=== PATIENT | female | born 1960 | race Hispanic/Latino ===

== ENCOUNTER 2017-11-10 14:33 | Inpatient (IN) | payer MEDICARE, OTHER ==
[~2017-11-10] VITALS: Ht 157.5 cm; Wt 50.1 kg
[2017-11-10] MEDS ORDERED: KETOROLAC TROMETHAMINE 30MG/ML ONE (15:22)
[2017-11-10 15:44] LABS: BASOPHILS % (AUTO) 0.6 % (0.0-5.0); EOSINOPHILS % (AUTO) 0.8 % (0.0-8.0); HEMATOCRIT 40.9 % (36-48); LYMPHOCYTES % (AUTO) 24.9 % (21.0-51.0); MEAN CORPUSCULAR HEMOGLOBIN 30.6 pg (27.0-33.0); MEAN CORPUSCULAR HGB CONC 33.3 g/dL (32.0-36.0); MONOCYTES % (AUTO) 8.7 % (3.0-13.0); PLATELET COUNT (AUTO) 216 K/uL (130-400); RED BLOOD CELL COUNT(AUTO) 4.45 MIL/uL (4.00-5.50); RED CELL DISTRIBUTION WIDTH 13.5 % (11.0-15.5); WHITE BLOOD COUNT (AUTO) 6.5 K/uL (4.8-10.8)
[2017-11-10 15:57] LABS: INR 0.92 (0.85-1.15); PARTIAL THROMBOPLASTIN TIME 22.9 SEC (26.3-35.5); PROTHROMBIN TIME 9.7 SEC (9.6-11.6)
[2017-11-10 16:00] LABS: CREATININE 0.7 mg/dL (0.5-1.5); POTASSIUM 3.4 mmol/L (3.5-5.1)
[2017-11-10] MEDS ORDERED: MORPHINE SULFATE 2 MG/ML 1ML SYG IV PRN (17:30)
[2017-11-10] MEDS: SODIUM CHLORIDE 0.9% 1000ML 1,000 ML IV SCH (17:30)
[2017-11-10] MEDS ORDERED: POTASSIUM CHLORIDE 10MEQ/100ML 100 ML IV PRN (18:00)
[2017-11-10] MEDS ORDERED: POTASSIUM CHLORIDE 10% ELIXIR 20 MEQ/15 ML UDCUP PO PRN (18:00)
[2017-11-10] MEDS ORDERED: LIDOCAINE HCL-MPF 1% 2ML VIAL IVP PRN (18:00)
[2017-11-10] MEDS ORDERED: POTASSIUM CHLORIDE 20 MEQ ERTAB PO PRN (18:00)
[2017-11-10] MEDS ORDERED: SODIUM CHLORIDE 0.9% 1000ML 1,000 ML IV ONE (18:06)
[2017-11-10] MEDS ORDERED: MORPHINE SULFATE 2 MG/ML 1ML SYG ONE (18:07)
[2017-11-10 19:30] VITALS: BP 128/84
[2017-11-10] MEDS ORDERED: ENOXAPARIN SODIUM 30 MG/0.3 ML SQ ONE (19:45)
[2017-11-10] MEDS ORDERED: MORPHINE SULFATE 10 MG/ML 1ML VIAL IM PRN (21:00)
[2017-11-10] MEDS ORDERED: PROMETHAZINE HCL 25 MG/ML 1ML AMPULE IM PRN (21:00)
[2017-11-10] MEDS: FAMOTIDINE/PF 20 MG/2 ML VIAL IV SCH (21:19)
[2017-11-10] MEDS: CEFEPIME HCL 2 GM VIAL IVP SCH (21:19)
[2017-11-10] MEDS: DEXTROSE 5%-LACTATED RINGERS 1,000 ML IV SCH (23:50)
[2017-11-10] MEDS: KETOROLAC TROMETHAMINE 15MG/ML IM PRN (23:50)
[2017-11-11] VITALS (23 sets, daily range): BP systolic 100–131; BP diastolic 56–80
[2017-11-11] MEDS: SODIUM CHLORIDE 0.9% 1000ML 1,000 ML IV SCH ×2 (02:30→13:30)
[2017-11-11 04:01] LABS: BASOPHILS % (AUTO) 0.8 % (0.0-5.0); EOSINOPHILS % (AUTO) 2.1 % (0.0-8.0); HEMATOCRIT 36.6 % (36-48); LYMPHOCYTES % (AUTO) 27.1 % (21.0-51.0); MEAN CORPUSCULAR HEMOGLOBIN 31.1 pg (27.0-33.0); MEAN CORPUSCULAR HGB CONC 33.7 g/dL (32.0-36.0); MEAN CORPUSCULAR VOLUME 92.2 fL (79-99); MONOCYTES % (AUTO) 10.4 % (3.0-13.0); NEUTROPHILS % (AUTO) 59.6 % (40.0-77.0); PLATELET COUNT (AUTO) 209 K/uL (130-400); RED BLOOD CELL COUNT(AUTO) 3.97 MIL/uL (4.00-5.50); RED CELL DISTRIBUTION WIDTH 13.2 % (11.0-15.5); WHITE BLOOD COUNT (AUTO) 5.2 K/uL (4.8-10.8)
[2017-11-11 04:12] LABS: INR 0.94 (0.85-1.15); PARTIAL THROMBOPLASTIN TIME 23.8 SEC (26.3-35.5); PROTHROMBIN TIME 9.9 SEC (9.6-11.6)
[2017-11-11 04:15] LABS: ALBUMIN 2.7 g/dL (3.5-5.0); BILIRUBIN,TOTAL 0.6 mg/dL (0.2-1.0); CREATININE 0.7 mg/dL (0.5-1.5); POTASSIUM 3.9 mmol/L (3.5-5.1); TOTAL PROTEIN, SERUM 6.2 g/dL (6.0-8.3)
[2017-11-11] MEDS: CEFEPIME HCL 2 GM VIAL IVP SCH (08:00)
[2017-11-11] MEDS: CEFAZOLIN SODIUM 1 GM VIAL IVP ONE ×2 (08:00→10:55)
[2017-11-11] MEDS ORDERED: CEFEPIME HCL 1 GM VIAL ONE (08:15)
[2017-11-11] MEDS ORDERED: FENTANYL CITRATE PF 50 MCG/1 ML 2ML VIAL ONE (08:36)
[2017-11-11] MEDS ORDERED: PROPOFOL 10 MG/ML 20ML VIAL IV ONE (08:36)
[2017-11-11] MEDS ORDERED: METHYLPREDNISOLONE SOD SUCC 125MG/2ML VIAL ONE (08:36)
[2017-11-11] MEDS ORDERED: LIDOCAINE PF 2% 5ML ABBOJECT ONE (08:36)
[2017-11-11] MEDS ORDERED: ONDANSETRON HCL 4 MG/2 ML VIAL ONE (08:36)
[2017-11-11] MEDS ORDERED: ROPIVACAINE 0.5% 5MG/ML 30ML IJ ONE (08:37)
[2017-11-11] MEDS: FAMOTIDINE/PF 20 MG/2 ML VIAL IV SCH ×2 (09:38→19:35)
[2017-11-11] MEDS: KETOROLAC TROMETHAMINE 15MG/ML IM PRN ×3 (09:39→19:36)
[2017-11-11] MEDS ORDERED: LACTATED RINGERS 1000ML 1,000 ML IV ONE (10:11)
[2017-11-11] MEDS ORDERED: CEFAZOLIN SODIUM 1 GM VIAL ONE (10:23)
[2017-11-11] MEDS ORDERED: HYDROMORPHONE 1 MG/1 ML AMP ONE (10:31)
[2017-11-11] MEDS ORDERED: EPHEDRINE SULFATE 50 MG/ML AMPULE ONE (10:56)
[2017-11-11] MEDS ORDERED: GENTAMICIN 80 MG/NS 100 ML PB 100 ML IV PRN (11:00)
[2017-11-11] MEDS: DEXTROSE 5%-LACTATED RINGERS 1,000 ML IV SCH ×2 (11:46→23:32)
[2017-11-11] MEDS ORDERED: MEPERIDINE-PF 25 MG/ML SYG ONE (12:54)
[2017-11-11] MEDS ORDERED: GENTAMICIN 80 MG/NS 100 ML PB 100 ML IV SCH (14:00)
[2017-11-11] MEDS ORDERED: MORPHINE SULFATE 10 MG/ML 1ML SYG IM PRN (14:00)
[2017-11-11] MEDS ORDERED: MAGNESIUM HYDROXIDE 30 ML/UDCUP PO PRN (14:00)
[2017-11-11] MEDS ORDERED: PROMETHAZINE HCL 25 MG/ML 1ML AMPULE IM PRN (14:00)
[2017-11-11] MEDS ORDERED: BISACODYL 10 MG SUPP.RECT RC PRN (14:00)
[2017-11-11] MEDS ORDERED: LACTATED RINGERS 1000ML 1,000 ML IV SCH (14:00)
[2017-11-11] MEDS ORDERED: MORPHINE SULFATE 10 MG/ML 1ML VIAL IM PRN (14:15)
[2017-11-11] MEDS: CEFAZOLIN SODIUM 1 GM VIAL IVP SCH ×2 (14:29→21:03)
[2017-11-11] MEDS: GENTAMICIN 80 MG/NS 100 ML PB 100 ML IV SCH (18:46)
[2017-11-11 21:02] LABS: HEMATOCRIT 36.4 % (36-48)
[2017-11-11] MEDS ORDERED: MORPHINE SULFATE 8 MG/ML VIAL ONE (21:22)
[2017-11-11] MEDS ORDERED: MORPHINE SULFATE 5 MG/ML VIAL IM PRN (21:23)
[2017-11-12] VITALS (7 sets, daily range): BP systolic 92–152; BP diastolic 57–81
[2017-11-12 00:22] LABS: HEMATOCRIT 35.3 % (36-48)
[2017-11-12] MEDS: GENTAMICIN 80 MG/NS 100 ML PB 100 ML IV SCH ×2 (01:49→09:13)
[2017-11-12] MEDS: CEFAZOLIN SODIUM 1 GM VIAL IVP SCH (06:05)
[2017-11-12 06:06] LABS: HEMATOCRIT 33.9 % (36-48)
[2017-11-12] MEDS: FAMOTIDINE/PF 20 MG/2 ML VIAL IV SCH ×2 (08:42→21:16)
[2017-11-12] MEDS: ENOXAPARIN SODIUM 30 MG/0.3 ML SQ SCH (08:43)
[2017-11-12] MEDS: KETOROLAC TROMETHAMINE 15MG/ML IM PRN (21:16)
[2017-11-13 03:20] VITALS: BP 125/72
[2017-11-13 04:53] LABS: BASOPHILS % (AUTO) 0.3 % (0.0-5.0); EOSINOPHILS % (AUTO) 0.4 % (0.0-8.0); LYMPHOCYTES % (AUTO) 28.1 % (21.0-51.0); MEAN CORPUSCULAR HEMOGLOBIN 31.7 pg (27.0-33.0); MEAN CORPUSCULAR HGB CONC 34.3 g/dL (32.0-36.0); MEAN CORPUSCULAR VOLUME 92.3 fL (79-99); NEUTROPHILS % (AUTO) 61.2 % (40.0-77.0); PLATELET COUNT (AUTO) 202 K/uL (130-400); RED BLOOD CELL COUNT(AUTO) 4.01 MIL/uL (4.00-5.50); RED CELL DISTRIBUTION WIDTH 13.4 % (11.0-15.5); WHITE BLOOD COUNT (AUTO) 7.6 K/uL (4.8-10.8)
[2017-11-13 05:00] LABS: CREATININE 0.7 mg/dL (0.5-1.5); POTASSIUM 3.7 mmol/L (3.5-5.1)
[2017-11-13 07:58] VITALS: BP 122/76
[2017-11-13] MEDS: FAMOTIDINE/PF 20 MG/2 ML VIAL IV SCH (09:35)
[2017-11-13] MEDS: ENOXAPARIN SODIUM 30 MG/0.3 ML SQ SCH (09:35)
[2017-11-13] MEDS: KETOROLAC TROMETHAMINE 15MG/ML IM PRN (09:36)
[2017-11-13] MEDS ORDERED: HYDROCODONE/ACETAMINOPHEN 5/325 MG TAB PO PRN (10:00)
[2017-11-13 11:00] VITALS: BP 102/50
[2017-11-13 16:00] VITALS: BP_SYST 113; BP_SYST 130; BP_DIAS 71; BP_DIAS 72
[2017-11-13] MEDS ORDERED: PRED10TA3 PO (16:22)
== END 2017-11-13 18:02 | DRG 481 ==
LOC: EDH 14:33 → EDHIP 17:30 → 4BH 19:29
PROVIDERS: ADMIT Hospitalist; ATTEND Hospitalist
PROC: 0QSB04Z Reposition Right Lower Femur with Internal Fixation Device, Open Approach (ICD-10-PCS; principal; 2017-11-11 10:39)
PROC: 0QSG04Z Reposition Right Tibia with Internal Fixation Device, Open Approach (ICD-10-PCS; 2017-11-11 10:39)
DX: S82.141A Displaced bicondylar fracture of right tibia, initial encounter for closed fracture (principal); S72.431A Displaced fracture of medial condyle of right femur, initial encounter for closed fracture; E44.0 Moderate protein-calorie malnutrition; M06.9 Rheumatoid arthritis, unspecified; S83.421A Sprain of lateral collateral ligament of right knee, initial encounter; Z79.899 Other long term (current) drug therapy; M19.90 Unspecified osteoarthritis, unspecified site; E87.6 Hypokalemia; W11.XXXA Fall on and from ladder, initial encounter; Y93.89 Activity, other specified; Y92.89 Other specified places as the place of occurrence of the external cause; Y99.8 Other external cause status; Z68.20 Body mass index [BMI] 20.0-20.9, adult; Z98.51 Tubal ligation status; Z90.49 Acquired absence of other specified parts of digestive tract
CPT/HCPCS: 36415; 71045; 72040; 73030; 73130; 73560; 73562; 73700; 76000; 80048; 80053; 85014; 85018; 85025; 85610; 85730; 86850; 86900; 86901; 93005; 93306; 94760; 97039; A4218; A4606; C1713; J0690; J0692; J1170; J1580; J1650; J1885; J2001; J2175; J2270; J2405; J2550; J2704; J2795; J2930; J3010; J3490; J7030; J7120